=== PATIENT | male | born 1995 | race Asian ===

== ENCOUNTER 2020-11-14 10:52 | Emergency (ER) | payer OTHER ==
[~2020-11-14] VITALS: Ht 167.6 cm; Wt 88.6 kg
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
[2020-11-14] MEDS ORDERED: ACETAMINOPHEN 500 MG TAB PO ONE (11:50)
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
[2020-11-14] MEDS ORDERED: LIDO5DIS41 TOP (14:51)
[2020-11-14 15:12] VITALS: BP 131/75
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
[2020-11-15] MEDS ORDERED: LIDO5DIS41 TOP (07:30)
== END 2020-11-14 15:13 | disposition home or self-care (01) ==
LOC: M ED 10:52
DX: S09.90XA Unspecified injury of head, initial encounter (principal); S80.01XA Contusion of right knee, initial encounter; S39.012A Strain of muscle, fascia and tendon of lower back, initial encounter; S16.1XXA Strain of muscle, fascia and tendon at neck level, initial encounter; V49.49XA Driver injured in collision with other motor vehicles in traffic accident, initial encounter; Y92.410 Unspecified street and highway as the place of occurrence of the external cause